=== PATIENT | female | born 1955 | race American Indian/Alaskan Native ===

== ENCOUNTER 2016-09-15 19:24 | Emergency (ER) | payer OTHER ==
[2016-09-15 19:31] VITALS: BMI 29.8
[2016-09-15 19:41] VITALS: PULSE 65; TEMP 98.6; O2SAT 98
[2016-09-15 19:59] LABS: ADD MANUAL DIFF? NO
[2016-09-15 20:10] LABS: BASO # 0.04 K/mm3 (0.0-2.0); BASO % 0.4 % (0.0-3.0); EOS # 0.2 (0.0-0.7); EOS % 2.2 % (1.5-5.0); GRAN % 35.2 % (50.0-68.0); HEMATOCRIT 37.2 % (36.0-48.0); LYMPH # 5.4 (1.2-3.4); LYMPH % 57.3 % (22.0-35.0); MEAN CORPUSCULAR HEMOGLOBIN 29.9 pg (25.0-35.0); MEAN CORPUSCULAR HGB CONC 33.6 g/dl (31.0-37.0); MEAN PLATELET VOLUME 11.3 fl (7.0-11.0); MONO # 0.5 (0.1-0.6); MONO % 4.9 % (1.0-6.0); PLATELET COUNT 234 10^3/uL (120.0-450.0); RED CELL DISTRIBUTION WIDTH 13.3 % (11.5-14.5); WHITE BLOOD COUNT 9.4 10^3/ul (4.5-11.0)
[2016-09-15 20:20] LABS: ALB/GLOB RATIO 1.2 (1.1-1.8); ALKALINE PHOSPHATASE 57 U/L (38-133); ALT/SGPT 26 U/L (7-56); AST/SGOT 28 U/L (15-39); BILIRUBIN,TOTAL 0.6 mg/dL (0.2-1.3); BLOOD UREA NITROGEN 13 mg/dL (7-21); CALCIUM 9.3 mg/dL (8.4-10.5); CARBON DIOXIDE 28 mmol/L (21-33); CHLORIDE 103 mmol/L (98-107); GFR AFRICAN-AMERICAN > 60; GLUCOSE,RANDOM 99 mg/dL (70-110); MAGNESIUM 2.2 mg/dL (1.7-2.2); POTASSIUM 4.2 mmol/L (3.6-5.0); SODIUM 139 mmol/L (132-148); TOTAL PROTEIN 7.7 g/dL (5.8-8.3)
[2016-09-15 20:27] LABS: URINE BILIRUBIN NEGATIVE (NEGATIVE); URINE BLOOD NEGATIVE (NEGATIVE); URINE GLUCOSE (UA) NEGATIVE (NEGATIVE); URINE KETONE NEGATIVE (NEGATIVE); URINE LEUKOCYTE ESTERASE NEGATIVE Leu/uL (NEGATIVE); URINE PROTEIN NEGATIVE mg/dL (<30 mg/dL); URINE UROBILINOGEN 0.2 E.U./dL (<1 E.U./dL)
[2016-09-15 20:28] LABS: URINE COLOR YELLOW (YELLOW)
[2016-09-15 20:29] LABS: URINE APPEARANCE CLEAR (CLEAR)
[2016-09-15 20:40] LABS: TROPONIN I < 0.01 ng/mL
--- NOTE | 2016-09-15 20:46 | ED PDOC ---
Arrival/HPI - General Chief Complaint: Chest Pain Time Seen by Provider: 09/15/16 19:37 Historian: Patient, Family - History of Present Illness Narrative History of Present Illness (Text): 09/15/16 20:43 This is a 61 year old female with a PMH notable for chronic back pain, and bradycardia presenting to the ED for evaluation of chest pain. The patient reports that the chest pain started this morning and seemed muscular in nature. The patient used a stim machine and tylenol with good results throughout the day. She was unable to achieve complete resolution of her Chest Pain, however. The daughter convinced her mother to come in to the ED for evaluation. The patient reports that the pain does not radiate, increase when she is standing and when she pushes on her chest. She notes relief when her bra is on. The patient denies nausea, vomiting, headache, and diaphoresis. PMH: Chronic Back Pain, Bradycardia Surg- Rotator cuff, Dilation and curettage Soc: 1/2ppd tobacco use, social EtOH, denies illicit drug use Allergy: NKDA Time/Duration: Prior to Arrival, 4-6 hours Symptom Onset: Sudden Symptom Course: Improving Quality: Stabbing Severity Level: 7 Past Medical History - Provider Review Nursing Documentation Reviewed: Yes - Travel History Have you recently traveled outside [place] w/in the past 3 mons?: No - Past History Past History: No Previous - Infectious Disease Hx of Infectious Diseases: None - Tetanus Immunization Tetanus Immunization: Unknown - Reproductive Menopause: Yes - Past Medical History Past Medical History: Non-Contributing - Cardiac Hx Cardiac Disorders: Yes Other/Comment: Bradycardia - Pulmonary Hx Respiratory Disorders: No - Neurological Hx Neurological Disorder: Yes Hx Vertigo: Yes - HEENT Hx HEENT Disorder: No - Renal Hx Renal Disorder: No - Endocrine/Metabolic Hx Endocrine Disorders: No - Hematological/Oncological Hx Blood Disorders: No - Integumentary Hx Dermatological Disorder: No - Musculoskeletal/Rheumatological Hx Musculoskeletal Disorders: Yes Hx Arthritis: Yes Hx Back Pain: Yes - Gastrointestinal Hx Gastrointestinal Disorders: No - Genitourinary/Gynecological Hx Genitourinary Disorders: No - Psychiatric Hx Psychophysiologic Disorder: Yes Hx Depression: Yes Hx Emotional Abuse: No Hx Physical Abuse: No Hx Substance Use: No - Surgical History Hx Orthopedic Surgery: Yes (L ROTATOR CUFF) - Suicidal Assessment Feels Threatened In Home Enviroment: No Family/Social History - Physician Review Nursing Documentation Reviewed: Yes Family/Social History: No Known Family HX Smoking Status: Light Smoker < 10 Cigarettes Daily Hx Alcohol Use: Yes Frequency of alcohol use: Socially Hx Substance Use: No Hx Substance Use Treatment: No Allergies/Home Meds Allergies/Adverse Reactions: Allergies aspirin Allergy (Verified 09/15/16 19:30) PAIN Home Medications: Home Meds Medication Instructions Recorded Confirmed Atorvastatin [Lipitor] 20 mg PO DAILY 04/20/15 09/15/16 Ergocalciferol (Vitamin D2) 50,000 unit PO QWK 09/15/16 09/15/16 [Vitamin D2] oxyCODONE/Acetaminophen [Percocet 1 tab PO Q6H PRN 09/15/16 09/15/16 5/325 mg Tab] Review of Systems - Physician Review All systems were reviewed & negative as marked: Yes - Review of Systems Constitutional: absent: Fatigue Eyes: absent: Vision Changes ENT: absent: Tinnitus Respiratory: absent: SOB, Cough Cardiovascular: Chest Pain. absent: Palpitations, Edema, LAWS, Syncope Gastrointestinal: absent: Abdominal Pain, Nausea Genitourinary Female: absent: Dysuria Skin: absent: Rash Neurological: absent: Headache, Focal Weakness Endocrine: absent: Diaphoresis Psychiatric: absent: Anxiety Physical Exam Vital Signs Reviewed: Yes Vital Signs Temp Pulse Resp BP Pulse Ox 09/15/16 19:40 98.6 F 65 24 146/76 98 Temperature: Afebrile Blood Pressure: Normal Pulse: Regular Respiratory Rate: Normal Appearance: Positive for: Well-Appearing Pain Distress: None Mental Status: Positive for: Alert and Oriented X 3 - Systems Exam Head: Present: Atraumatic, Normocephalic Pupils: Present: PERRL Extroacular Muscles: Present: EOMI Conjunctiva: Present: Normal Mouth: Present: Moist Mucous Membranes. No: Dry Respiratory/Chest: Present: Clear to Auscultation, Good Air Exchange. No: Respiratory Distress, Accessory Muscle Use Cardiovascular: Present: Regular Rate and Rhythm, Normal S1, S2. No: Murmurs Abdomen: Present: Normal Bowel Sounds. No: Tenderness, Distention, Peritoneal Signs Upper Extremity: Present: Normal Inspection. No: Cyanosis, Edema Lower Extremity: Present: Normal Inspection. No: Edema Neurological: Present: GCS=15, CN II-XII Intact, Speech Normal Skin: Present: Warm, Dry, Normal Color. No: Rashes Psychiatric: Present: Alert, Oriented x 3, Normal Insight, Normal Concentration Medical Decision Making ED Course and Treatment: 09/15/16 20:50 Impression: This is a 61 year old female with a PMH notable for chronic back pain, and bradycardia presenting to the ED for evaluation of chest pain. The patient appears comfortable and clinically well. The patient has presentation of likely musculoskeletal chest pain. Differential: Atypical Chest Pain Musculoskeletal Chest Pain Non-ischemic chest pain Ischemic Chest Pain Plan: CBC, CMP, Troponin EKG CXR Prior Visits: 04/20/15- Bradycardia- patient refused placement of pacemaker. Progress Note: Patient seen and examined at the bedside. The patient is in no acute distress. She openly states that she would not have come to the ED if her daughter had not convinced her. The patient's pain is reproducible on examination. In the setting of reproducible chest pain, negative EKG, negative troponin and negative CXR, the patient was deemed medically safe for discharge. The patient was instructed to follow up with her primary care physician following discharge. The patient is agreeable with the plan. The patient was medically safe for discharge. - Lab Interpretations Lab Results: 09/15/16 19:45 09/15/16 19:45 Lab Results 09/15/16 20:05: Urine Color Yellow, Urine Appearance Clear, Urine pH 7.0, Ur Specific [place] 1.010, Urine Protein Negative, Urine Glucose (UA) Negative, Urine Ketones Negative, Urine Blood Negative, Urine Nitrate Negative, Urine Bilirubin Negative, Urine Urobilinogen 0.2, Ur Leukocyte Esterase Negative 09/15/16 19:45: WBC 9.4 D, RBC 4.18, Hgb 12.5, Hct 37.2, MCV 89.0, MCH 29.9, MCHC 33.6, RDW 13.3, Plt Count 234, MPV 11.3 H, Gran % 35.2 L, Lymph % (Auto) 57.3 H, Gordon % (Auto) 4.9, Eos % (Auto) 2.2, Baso % (Auto) 0.4, Gran # 3.30, Lymph # 5.4 H, Gordon # 0.5, Eos # 0.2, Baso # 0.04, Sodium 139, Potassium 4.2, Chloride 103, Carbon Dioxide 28, Anion Gap 12, BUN 13, Creatinine 1.0, Est GFR ( Amer) > 60, Est GFR (Non-Af Amer) 56, Random Glucose 99, Calcium 9.3, Magnesium 2.2, Total Bilirubin 0.6, AST 28, ALT 26, Alkaline Phosphatase 57, Lactate Dehydrogenase 565, Total Creatine Kinase 153, Troponin I < 0.01, Total Protein 7.7, Albumin 4.2, Globulin 3.5, Albumin/Globulin Ratio 1.2 I have reviewed the lab results: Yes Interpretation: All labs normal - RAD Interpretation Narrative RAD Interpretations (Text): 09/15/16 20:57 no acute pulmonary pathology Radiology Orders: 09/15/16 19:42 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 or T wave changes. Intervals within normal limits Interpreted by ED Physician: Yes Type: 12 lead EKG Comparison: Com.w/previous EKG Disposition/Present on Arrival - Present on Arrival Any Indicators Present on Arrival: No History of DVT/PE: No History of Uncontrolled Diabetes: No Urinary Catheter: No History of Decub. Ulcer: No History Surgical Site Infection Following: None - Disposition Have Diagnosis and Disposition been Completed?: Yes Diagnosis: Chest pain Disposition: HOME/ ROUTINE Disposition Time: 20:45 Patient Plan: Discharge Patient Problems: Current Active Problems Problem Status Diagnosed Chest pain Acute Condition: FAIR Discharge Instructions (ExitCare): Chest Pain (ED) Print Language: JAPANESE Additional Instructions: 1.) Follow up with PMD following discharge 2.) Use Motrin/Tylenol as needed for pain. Always take with food. Use in accordance with medication directions 3.) Maintain adequate hydration 4.) If symptoms return, please return to the ED for evaluation.
[2016-09-15 21:08] VITALS: BP 131/74; RESP 20
--- NOTE | 2016-09-16 09:15 | RAD ---
HISTORY: chest pain COMPARISON: Chest x-ray performed 06/02/13 TECHNIQUE: Chest, one view. FINDINGS: Examination limited by habitus. LUNGS: No focal consolidation. Please note that chest x-ray has limited sensitivity for the detection of pulmonary masses. PLEURA: No significant pleural effusion identified. No definite pneumothorax . CARDIOVASCULAR: The cardiomediastinal silhouette appears within normal limits of size. OSSEOUS STRUCTURES: No acute osseous abnormality identified. VISUALIZED UPPER ABDOMEN: Unremarkable. OTHER FINDINGS: None. IMPRESSION: No focal consolidation, significant pleural effusion, or definite pneumothorax identified.
--- NOTE | 2016-09-16 09:56 | CARD ---
APPROVED REPORT EKG Measurement Heart [id number] <Conclusion> Normal sinus rhythm Normal ECG
== END 2016-09-15 21:13 | disposition home or self-care (01) ==
LOC: ED 19:24
DX: R07.9 Chest pain, unspecified (principal); F17.210 Nicotine dependence, cigarettes, uncomplicated; R00.1 Bradycardia, unspecified

== ENCOUNTER 2018-04-22 10:22 | Emergency (ER) | payer OTHER ==
[2018-04-22 11:01] VITALS: TEMP 98.6; BMI 28.7
--- NOTE | 2018-04-22 11:33 | ED PDOC ---
Arrival/HPI - General Chief Complaint: Shortness Of Breath Time Seen by Provider: 04/22/18 11:03 Historian: Patient - History of Present Illness Narrative History of Present Illness (Text): 04/22/18 11:32 Patient is a 62 year old female, with past medical history of chronic degenerative disk disease, presents to the Emergency Department complaining of wheezing and productive cough since past week. Patient denies shortness of b reath, denies any chest pain. Patient reports mild improvement to symptoms after inhaler twice a day but states "feeling it in my chest" today prompting her to present to the ED for medical evaluation.Denies hemoptysis. Denies leg pain or swelling. Denies dizziness or palpitations. PMD: Dr. Angela 04/22/18 21:02 Time/Duration: 1 week Symptom Onset: Gradual Symptom Course: Unchanged Activities at Onset: Light Context: Home Past Medical History - Provider Review Nursing Documentation Reviewed: Yes - Past History Past History: No Previous - Infectious Disease Hx of Infectious Diseases: None - Tetanus Immunization Tetanus Immunization: Unknown - Past Medical History Past Medical History: Non-Contributing - Cardiac Hx Cardiac Disorders: Yes Other/Comment: Bradycardia - Pulmonary Hx Respiratory Disorders: Yes Hx Bronchitis: Yes - Neurological Hx Neurological Disorder: Yes Hx Vertigo: Yes - HEENT Hx HEENT Disorder: No - Renal Hx Renal Disorder: No - Endocrine/Metabolic Hx Endocrine Disorders: No - Hematological/Oncological Hx Blood Disorders: No - Integumentary Hx Dermatological Disorder: No - Musculoskeletal/Rheumatological Hx Musculoskeletal Disorders: Yes Hx Arthritis: Yes Hx Back Pain: Yes - Gastrointestinal Hx Gastrointestinal Disorders: No - Genitourinary/Gynecological Hx Genitourinary Disorders: No - Psychiatric Hx Psychophysiologic Disorder: Yes Hx Depression: Yes Hx Substance Use: No - Surgical History Hx Orthopedic Surgery: Yes (L ROTATOR CUFF) - Suicidal Assessment Feels Threatened In Home Enviroment: No Family/Social History - Physician Review Nursing Documentation Reviewed: Yes Family/Social History: Unknown Family HX Smoking Status: Light Smoker < 10 Cigarettes Daily Hx Alcohol Use: Yes Hx Substance Use: No Hx Substance Use Treatment: No Allergies/Home Meds Allergies/Adverse Reactions: Allergies aspirin Allergy (Verified 04/22/18 11:01) PAIN Home Medications: Home Meds Medication Instructions Recorded Confirmed Ergocalciferol (Vitamin D2) 50,000 unit PO QWK 09/15/16 04/22/18 [Vitamin D2] oxyCODONE/Acetaminophen [Percocet 1 tab PO Q6H PRN 09/15/16 04/22/18 5/325 mg Tab] Review of Systems - Review of Systems Constitutional: absent: Fatigue, Fevers Eyes: absent: Vision Changes ENT: absent: Sinus Congestion Respiratory: Cough, Wheezing. absent: SOB Cardiovascular: absent: Chest Pain, Edema, Calf Pain, LAWS Gastrointestinal: Nausea. absent: Abdominal Pain, Diarrhea, Vomiting, Appetite Changes Genitourinary Female: absent: Dysuria Musculoskeletal: absent: Back Pain, Neck Pain Skin: absent: Rash Neurological: absent: Headache, Dizziness, Focal Weakness Endocrine: absent: Polyuria Hemo/Lymphatic: absent: Easy Bleeding Physical Exam - Physical Exam Narrative Physical Exam (Text): 04/22/18 11:46 Head: Atraumatic. Normocephalic. Eyes: PERRL. EOMI. Conjunctivae are not pale. ENT: Mucous membranes are moist and intact. Oropharynx is clear and symmetric. TMs are clear. No pharyngeal erythema or exudates. Neck: Supple. Full ROM. No JVD. No lymphadenopathy. No meningeal signs. Cardiovascular: Regular rate. Regular rhythm. Systolic murmur noted. Distal pulses are 2+ and symmetric. Pulmonary/Chest: No evidence of respiratory distress. Mild expiratory wheeze. No accessory muscle usage. Abdominal: Soft and non-distended. There is no tenderness. No rebound, guarding, or rigidity. No organomegaly. Good bowel sounds. Back: No CVA tenderness. Extremities: No edema. No cyanosis. No clubbing. Full range of motion in all extremities. No calf tenderness. Skin: Skin is warm and dry. No petechiae. No purpura. Neurological: Alert, awake, and oriented. Motor and sensory exam intact. Psychiatric: Good eye contact. Normal interaction, affect, and behavior. Vital Signs Reviewed: Yes Vital Signs Temp Pulse Resp BP Pulse Ox 04/22/18 10:59 98.6 F 76 19 124/71 95 Temperature: Afebrile Blood Pressure: Normal Pulse: Regular Respiratory Rate: Normal Appearance: Positive for: Well-Appearing, Non-Toxic, Comfortable Pain Distress: None Mental Status: Positive for: Alert and Oriented X 3 Medical Decision Making ED Course and Treatment: 04/22/18 11:47 Impression: 62 year old female presents to the Emergency Department complaining of cough since 1 week. Differential Diagnosis included but are not limited to: Bronchitis vs. pneumonia vs. asthma Plan: -- Chest X-ray -- Duoneb -- Reassess and disposition Prior Visits: Notes and results from previous visits were reviewed. Progress Notes: Patient is a smoker. She has been counseled on risks of smoking. On exam, mild wheezing noted. No chest pain or pleuritic pain. No calf pain. No ocps. No travel or prolonged immobilization. 04/22/18 12:34 On re-examination, patient's wheezing has resolved and oxygen saturation is at 98%. CXR reviewed with patient. Patient will be discharged home with Zithromax, Prednisolone and nebulizer treatments to be used as needed. Smoking cessation has also been discussed with the patient. Patient is aware and expresses understanding. Patient agrees with plan. I reviewed treatment plan with daughter. Prior admissions reviewed. While in ED she has had heart rate of 70-80. NO bradycardia has been noted. No chest pain or dizziness noted. - Scribe Statement The provider has reviewed the documentation as recorded by the Scribe Griffin Adames. All medical record entries made by the Scribe were at my direction and personally dictated by me. I have reviewed the chart and agree that the record accurately reflects my personal performance of the history, physical exam, medical decision making, and the department course for this patient. I have also personally directed, reviewed, and agree with the discharge instructions and disposition. Disposition/Present on Arrival - Present on Arrival Any Indicators Present on Arrival: No History of DVT/PE: No History of Uncontrolled Diabetes: No Urinary Catheter: No History of Decub. Ulcer: No History Surgical Site Infection Following: None - Disposition Have Diagnosis and Disposition been Completed?: Yes Diagnosis: Bronchitis, Wheezing Disposition: HOME/ ROUTINE Disposition Time: 13:35 Isolation: Special Contact Patient Plan: Discharge Condition: GOOD Discharge Instructions (ExitCare): Quitting Smoking for Older Adults, Acute Bronchitis, Adult (DC) Additional Instructions: For any chest pain, any shortness of breath, any fevers, any palpitations, any dizziness, any leg pain or swelling, any coughing or spitting blood, any persistent or worsening of symptoms, get rechecked. Take antibiotics as directed. Use inhaler/nebulizer as needed. JAY JAY ZHU, thank you for letting us take care of you today. Your provider was Marina Garcia MD and you were treated for BRONCHITIS. The emergency medical care you received today was directed at your acute symptoms. If you were prescribed any medication, please fill it and take as directed. It may take several days for your symptoms to resolve. Return to the Emergency Department if your symptoms worsen, do not improve, or if you have any other problems. Please contact your doctor or call one of the physicians/clinics you have been referred to that are listed on the Patient Visit Information form that is included in your discharge packet. Bring any paperwork you were given at discharge with you along with any medications you are taking to your follow up visit. Our treatment cannot replace ongoing medical care by a primary care provider outside of the emergency department. Thank you for allowing the [facility] team to be part of your care today. If you had an X-Ray or CT scan: A Radiologist will review the ED reading if any change in treatment is needed we will contact you. Prescriptions: Nebulizer [Aeroeclipse II] 1 each MC Q8 PRN #1 each PRN Reason: Wheezing Albuterol 0.083% [Albuterol 0.083% Inhal Lali (2.5 mg/3 ml) UD] 2.5 mg IH Q8 PRN #20 neb PRN Reason: Wheezing predniSONE [Prednisone] 60 mg PO DAILY #15 tab Azithromycin [Zithromax] 250 mg PO DAILY #6 tab Referrals: Gina Rodríguez MD [Primary Care Provider] - Follow up with primary Forms: [employer] (Emirati)
[2018-04-22] MEDS ORDERED: Albuterol-Ipratrop 3 mg / 0.5 (3 ml) UD IH STA (11:36)
[2018-04-22 11:48] VITALS: RESP 18
[2018-04-22 13:11] VITALS: BP 126/80; PULSE 72; O2SAT 96
--- NOTE | 2018-04-22 15:45 | RAD ---
Date of service: 04/22/2018 HISTORY: one week of cough and congestion COMPARISON: 09/15/2016 TECHNIQUE: Chest PA and lateral FINDINGS: LUNGS: No active pulmonary disease. PLEURA: No significant pleural effusion identified. No pneumothorax apparent. CARDIOVASCULAR: No aortic atherosclerotic calcification present No radiographic findings to suggest acute or significant cardiovascular disease. OSSEOUS STRUCTURES: No significant abnormalities. VISUALIZED UPPER ABDOMEN: Normal. OTHER FINDINGS: None. IMPRESSION: No active disease. No significant interval change compared to the prior examination(s).
== END 2018-04-22 12:55 | disposition home or self-care (01) ==
LOC: ED 10:22
DX: J40 Bronchitis, not specified as acute or chronic (principal); R06.2 Wheezing; F17.210 Nicotine dependence, cigarettes, uncomplicated